=== PATIENT | female | born 1965 | race Caucasian/White ===

== ENCOUNTER 2016-11-07 04:11 | Emergency (ER) | payer OTHER ==
[~2016-11-07] VITALS: Ht 165.1 cm; Wt 78.9 kg
[~2016-11-07 04:11] MED LIST: NOHOMEMEDS
[2016-11-07] MEDS ORDERED: VIBRAMYCIN100 MG PO (05:27)
[2016-11-07] MEDS ORDERED: PREDNISONE20 MG PO (05:27)
[2016-11-07] MEDS ORDERED: VENTOLIN HFA18 GM IH (05:27)
[2016-11-07 05:45] VITALS: BP 146/88
== END 2016-11-07 05:47 | disposition home or self-care (01) ==
LOC: EME 04:11
DX: J32.9 Chronic sinusitis, unspecified (principal); J06.9 Acute upper respiratory infection, unspecified
CPT/HCPCS: 71020; 94640; 99281; 99284

== ENCOUNTER 2017-11-01 03:45 | Emergency (ER) | payer OTHER ==
[~2017-11-01] VITALS: Ht 165.1 cm; Wt 80.2 kg
[~2017-11-01 03:45] MED LIST changes: +PREDNISONE20 MG PO; +VENTOLIN HFA18 GM IH; +VIBRAMYCIN100 MG PO
[2017-11-01 03:48] VITALS: BP 124/89
[2017-11-01 05:26] LABS: HEMATOCRIT 43.1 % (36.0-46.0); HEMOGLOBIN 14.5 G/DL (11.9-15.5); MCH 29.6 PG (29.0-34.0); MCHC 33.6 G/DL (30.0-36.0); PLATELET COUNT 203 K/uL (156-360); RBC DIS.WIDTH-CV 12.8 % (11.8-14.6); WHITE BLOOD COUNT 5.8 K/uL (4.1-10.2)
[2017-11-01 05:47] LABS: QUANTITATIVE HCG 11.7 MIU/ML
[2017-11-01 05:57] LABS: ALBUMIN 4.3 g/dL (3.2-4.8); CHLORIDE 108 mEq/L (99-109); POTASSIUM 4.5 mEq/L (3.7-5.4); SODIUM 139 mEq/L (136-147)
[2017-11-01 05:59] LABS: GLUCOSE 106 mg/dL (70-99)
[2017-11-01 06:00] LABS: TOTAL PROTEIN 7.7 g/dL (6.4-8.3)
[2017-11-01 06:01] LABS: TOTAL BILIRUBIN 0.4 mg/dL (0.0-1.0)
[2017-11-01 06:03] LABS: ALKALINE PHOSPHATASE 136 IU/L (3-129); CREATININE 0.9 mg/dL (0.6-1.3); GFR ESTIMATE (CALCULATED) > 59 mL/min/
[2017-11-01 06:04] LABS: UREA NITROGEN (BUN) 13 mg/dL (9-23)
[2017-11-01 06:05] LABS: AST (GOT) 25 IU/L (2-34)
[2017-11-01 06:06] LABS: ALT (GPT) 21 IU/L (3-49)
== END 2017-11-01 11:15 | disposition left against medical advice (07) ==
LOC: EME 03:45
DX: R50.9 Fever, unspecified (principal); R07.0 Pain in throat; Z53.21 Procedure and treatment not carried out due to patient leaving prior to being seen by health care provider
CPT/HCPCS: 80053; 84702; 85027